=== PATIENT | female | born 1985 | race Caucasian/White ===

== ENCOUNTER 2018-01-04 14:10 | Emergency (ER) | payer SELFPAY ==
[~2018-01-04] VITALS: Ht 157.5 cm; Wt 52.2 kg
[2018-01-04 15:01] VITALS: BP 115/70
[2018-01-04 15:08] LABS: Urine Bacteria FEW /hpf (None Seen); Urine Blood 1+ /uL (Negative); Urine Mucus FEW (None Seen); Urine Specific Gravity 1.021 (1.001-1.035); Urine WBC 13 /hpf (0 - 5)
[2018-01-04 15:11] LABS: Urine Pregnacy Test Negative (Negative)
[2018-01-04 15:27] LABS: Alcohol, Urine < 3.0 mg/dL (0-5); Amphetamine Screen, Urine POSITIVE (NEGATIVE); Barbiturate Scree,Urine NEGATIVE (NEGATIVE); Benzodiazephine Screen, Urine NEGATIVE (NEGATIVE); Cannabinoid Screen, Urine NEGATIVE (NEGATIVE); Cocaine Screen, Urine NEGATIVE (NEGATIVE); Opiate Scree,Urine POSITIVE (NEGATIVE); Phencyclidine Screen, Urine NEGATIVE (NEGATIVE)
== END 2018-01-04 15:11 | disposition home or self-care (01) ==
LOC: ER 14:10
DX: M54.9 Dorsalgia, unspecified (principal); M25.552 Pain in left hip; M25.551 Pain in right hip; F17.210 Nicotine dependence, cigarettes, uncomplicated; F12.10 Cannabis abuse, uncomplicated; F11.10 Opioid abuse, uncomplicated; V43.52XA Car driver injured in collision with other type car in traffic accident, initial encounter; Y93.89 Activity, other specified; Y99.8 Other external cause status; Y92.410 Unspecified street and highway as the place of occurrence of the external cause
CPT/HCPCS: 80307; 81001; 81025